=== PATIENT | female | born 1945 | race Caucasian/White ===

== ENCOUNTER 2016-06-11 13:00 | Emergency (ER) | payer MEDICARE, OTHER ==
[~2016-06-11] VITALS: Ht 170.2 cm; Wt 95.3 kg
[2016-06-11 13:10] VITALS: BP 223/108
[2016-06-11] MEDS ORDERED: DIPHTH,PERTUSS(ACELL),TET TOX 0.5 ML DISP.SYRIN. VAX IM ONE (14:00)
[2016-06-11] MEDS ORDERED: HYDROCODONE/APAP 5/325MG TABLET. PO ONE (14:00)
[2016-06-11] MEDS ORDERED: LIDOCAINE/EPI/TETRACAINE TOPICAL GEL 3 ML. TP ONE (14:00)
--- NOTE | 2016-06-11 14:24 | RAD ---
Indication injury to the head and neck. The head and cervical spine were evaluated. Images of the cervical spine were reformatted in the coronal and sagittal planes. No prior imaging of the head is available. CT head: Findings The visualized paranasal sinuses appear normal. There is no subdural or epidural hematoma. No mass or midline shift is seen. There is no hemorrhage. No acute finding is apparent. A soft tissue injury posteriorly near the vertex of the head is noted.. CT cervical spine: Findings. The lung apices are clear. There is a nodule in the left lobe of the thyroid. This could be further evaluated with nonemergent ultrasound. It is likely incidental. A definite significant soft tissue finding in the neck is not seen. Review of axial images shows no acute finding. Facet arthropathy is seen at several levels. Best demonstrated on the reformatted images is degenerative change manifested as disc space narrowing primarily at C5-6 and C6-7. An acute finding is not seen on the reformatted images. 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 No acute finding seen No acute finding seen in the head. PQRS Compliance Statement: One or more of the following individualized dose reduction techniques were utilized for this examination: 1. Automated exposure control 2. Adjustment of the mA and/or kV according to patient size 3. Use of iterative reconstruction technique
[2016-06-11] MEDS ORDERED: HYDR-971 PO (15:14)
--- NOTE | 2016-06-11 15:14 | PHYS DOC ---
Past Medical History Past Medical History: Other Additional Past Medical Histor: PVCs, ORTHOSTATIC HYPOTENSION, POLYMYOSCYTOSIS Past Surgical History: Hysterectomy, Knee Replacement Alcohol Use: Occasionally Drug Use: None Adult General Chief Complaint Chief Complaint: MECHANICAL FALL HPI HPI Patient is a 70 year old female who presents with head injury. The patient states she was holding the ladder while her climbed up to do house work. He slipped on the ladder while descending, fell onto the patient, & she fell back against a stone retaining wall. May have briefly lost consciousness. She complains of headache, scalp laceration, & tailbone pain. She denies other injuries, last tetanus unknown, no blood thinners. No syncope contributing to this injury. Review of Systems Review of Systems Constitutional: Denies fever or chills Eyes: Denies change in visual acuity HENT: Denies nasal congestion or sore throat Respiratory: Denies cough or shortness of breath Cardiovascular: Denies chest pain or edema GI: Denies abdominal pain, nausea, vomiting, Musculoskeletal: Denies back pain or joint pain Integument: Denies rash or skin lesions, reports scalp laceration Neurologic: Reports headache, denies focal weakness or sensory changes Current Medications Current Medications Current Medications Medications (Trade) Dose Ordered Sig/Valentina Start Time Stop Time Status Last Admin Dose Admin Acetaminophen/ Hydrocodone Bitart (Lortab 5/325) 2 tab 1X ONCE 06/11/16 14:00 06/11/16 14:01 DC 06/11/16 14:00 2 TAB Diphtheria/ Tetanus/Acell Pertussis (Boostrix) 0.5 ml ONCE ONCE 06/11/16 14:00 06/11/16 14:01 DC 06/11/16 14:02 0.5 ML Lidocaine/ Epinephrine (Let Topical) 3 ml 1X ONCE 06/11/16 14:00 06/11/16 14:01 DC 06/11/16 14:01 3 ML Allergies Allergies Allergies Coded Allergies Type Severity Reaction Last Updated Verified No Known Drug Allergies 06/11/16 No Physical Exam Physical Exam Constitutional: obese no acute distress, non-toxic appearance. HENT: Normocephalic, bilateral external ears normal, no hemotympanum, oropharynx moist, nose normal. right occipital scalp hematoma with 4 cm stellate laceration, abrasion to left top of scalp. Eyes: PERRLA, EOMI, conjunctiva normal, no discharge. Neck: supple, no stridor. no midline c-spine tenderness. Cardiovascular: RRR, no murmurs, no edema. Lungs & Thorax: LCTAB, no wheezing, no respiratory distress. Abdomen: soft, nontender, nondistended. Skin: Warm, dry, no erythema, no rash. scalp laceration as above Back: mild coccygeal tenderness. Extremities: No tenderness or deformity, no edema. Neurologic: Alert and oriented X 3, CN2-12 grossly intact, symmetric strength/ sensation to UE & LE, no focal deficits noted. Psychologic: Affect normal, judgement normal, mood normal. Current Patient Data Vital Signs Vital Signs Date Time Temp Pulse Resp B/P Pulse Ox O2 Delivery O2 Flow Rate FiO2 06/11/16 14:00 16 Room Air 06/11/16 13:10 98.5 61 223/108 95 98.5 EKG EKG [] Radiology/Procedures Radiology/Procedures PROCEDURE: CT HEAD AND CERVICAL SPINE WO Indication injury to the head and neck. The head and cervical spine were evaluated. Images of the cervical spine were reformatted in the coronal and sagittal planes. No prior imaging of the head is available. CT head: Findings The visualized paranasal sinuses appear normal. There is no subdural or epidural hematoma. No mass or midline shift is seen. There is no hemorrhage. No acute finding is apparent. A soft tissue injury posteriorly near the vertex of the head is noted.. CT cervical spine: Findings. The lung apices are clear. There is a nodule in the left lobe of the thyroid. This could be further evaluated with nonemergent ultrasound. It is likely incidental. A definite significant soft tissue finding in the neck is not seen. Review of axial images shows no acute finding. Facet arthropathy is seen at several levels. Best demonstrated on the reformatted images is degenerative change manifested as disc space narrowing primarily at C5-6 and C6-7. An acute finding is not seen on the reformatted images. 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 No acute finding seen No acute finding seen in the head. PQRS Compliance Statement: One or more of the following individualized dose reduction techniques were utilized for this examination: 1. Automated exposure control 2. Adjustment of the mA and/or kV according to patient size 3. Use of iterative reconstruction technique DICTATED and SIGNED BY: NIDIA JACK MD DATE: 06/11/16 1410[] Course & Med Decision Making Course & Med Decision Making Pertinent Labs and Imaging studies reviewed. (See chart for details) The patient presents with head injury & scalp laceration. Tetanus updated, wound irrigated by ED RN, LET applied. Repaired by me. CT negative for serious brain injury. She declined XR of coccyx. She felt well, pain controlled, comfortable with discharge home. Recommend rest, ice pack, norco as needed for severe pain, no drinking alcohol or driving while taking norco. Follow up here or with PCP in 5-7 days for staple removal. Come back for altered mental status, focal neuro deficit, uncontrolled vomiting, any otherwise worsening condition. Discharged home in stable & improved condition. [] Dragon Disclaimer Dragon Disclaimer This electronic medical record was generated, in whole or in part, using a voice recognition dictation system. Departure Departure Impression: Primary Impression: Scalp laceration Additional Impression: Head injury Disposition: 01 HOME, SELF-CARE Condition: STABLE Referrals: [facility] (PCP) Patient Instructions: Head Injury, Adult, [id number], Staple Wound Closure, [id number] Additional Instructions: You were seen in the emergency department today for scalp laceration & head injury. There was no serious injury identified on your CT scan. Please rest, apply ice pack, take tylenol for pain or norco for severe breakthrough pain. Don't drink alcohol or drive while taking norco. Follow up here or with your primary care doctor in 5-7 days for staple removal. Come back for confusion, trouble walking or talking, uncontrolled vomiting, any otherwise worsening condition. Scripts Hydrocodone/Apap 5-325 ([place] 5-325 Tablet)1 Each Tablet1 Tab PO PRN Q6HRS PRN PAIN #10 TAB Prov:KISHOR RODGERS MD 06/11/16 Laceration Repair Lac Repair Indication: scalp laceration Procedure: The patient was placed in the appropriate position and anesthesia around the laceration was achieved with topical application of LET. The area was then irrigated with a copious amount of NS by the ED RN. The laceration was repaired using 6 jhonatan. the left sided abrasion did not require repair The wound area was then dressed with gauze. Total repaired wound length: 4 cm. The patient tolerated the procedure well. Complications: none. Problem Qualifiers KISHOR RODGERS MD Jun 11, 2016 15:14
== END 2016-06-11 15:24 | disposition home or self-care (01) ==
LOC: ER 13:00
DX: S01.01XA Laceration without foreign body of scalp, initial encounter (principal); M53.3 Sacrococcygeal disorders, not elsewhere classified; Z96.659 Presence of unspecified artificial knee joint; Z90.710 Acquired absence of both cervix and uterus; W11.XXXA Fall on and from ladder, initial encounter; Y93.89 Activity, other specified; Y99.8 Other external cause status; Y92.89 Other specified places as the place of occurrence of the external cause
CPT/HCPCS: 12002; 70450; 72125; 90471; 90715; 99284-25